=== PATIENT | female | born 1965 | race African-American/Black ===

== ENCOUNTER 2017-02-23 11:45 | Observation (INO) ==
[2017-02-23] MEDS ORDERED: NITROGLYCERIN 2% OINT 1 INCH/GM PACK TOP STA (12:25)
[2017-02-23] MEDS ORDERED: ONDANSETRON 4 MG/2 ML VIAL IV STA (12:25)
[2017-02-23] MEDS ORDERED: METOPROLOL TARTRATE 25 MG TABLET PO STA (12:25)
[2017-02-23] MEDS ORDERED: ASPIRIN 325 MG TABLET PO STA (12:25)
[2017-02-23] MEDS ORDERED: ALUM/MAG/SIMETH/LIDO VISC 1:1 30 ML BOTTLE PO STA (12:25)
--- NOTE | 2017-02-23 12:43 | Emergency Department Note ---
Raj Matthews Manpreet, am scribing for, and in the presence of, Dallin Hill MD 12:26. Sergio Matthews Charles R, MD, personally performed the services described in this documentation, ascribed by Lamine Anthony in my presence, and it is both accurate and complete . Arrival - Arrival Chief Complaint: Chest Pain Stated Complaint: sob,chest pains ED Nursing Triage Note: Midsternal chest pain onset 1130 - pt states that she was scheduled to have a echo done and states that while she was waiting that she started having chest pain Mode of Arrival: Ambulatory Limitations: No Limitations Source: Patient Time Seen by Provider: 02/23/17 12:16 - History of Present Illness HPI Narrative: Pt is a 51 y/o female who presents to the ED with CC of midsternal CP radiating into left shoulder and left neck onset today at 1130. Pt states she has been having this pain everyday but it suddenly got worse while she was sitting in her car. Pt states nothing makes the pain worse but it is accompanied by SOB. Pt had lab work done in [place], [place] on 02/20/17. Pt states she had prior heart catheterization done one year ago by Dr. Mcmanus but did not follow up. Pt also reports of having a previous AR in [place]. Pt denies any N/V/D, cough , fever or chills. No other pains/complaints reported to the ED. Onset (ago): hour(s) Consistency: constant Severity: moderate Quality: dull Date of Last Menstrual Period: hyster Allergies/Adverse Reactions: Allergies Allergy/AdvReac Type Severity Reaction Status Date / Time clindamycin Allergy HIVES Verified 02/23/17 11:55 metoclopramide [From Reglan] Allergy HIVES Verified 02/23/17 11:55 Penicillins Allergy HIVES Verified 02/23/17 11:55 Home Medications: Home Medications Medication Instructions Recorded Confirmed Type Furosemide [Furosemide] 20 mg PO 02/23/17 History Furosemide [Furosemide] 40 mg PO 02/23/17 History Metoprolol Succinate [Metoprolol 50 mg PO DAILY 02/23/17 History Succinate] NIFEdipine XL TAB [Procardia Xl] 30 mg PO DAILY 02/23/17 History Pantoprazole Sodium [Pantoprazole 40 mg PO DAILY 02/23/17 History Sodium] Potassium Chloride [Potassium 10 meq PO DAILY 02/23/17 History Chloride] Review of System - Review of System 12 point system: reviewed and no additional remarkable complaints except as stated - Review of System Constitutional: Absent: chills, diaphoresis, fever Respiratory: Present: respiratory distress. Absent: cough, wheezing Cardiovascular: Present: chest pain Gastrointestinal: Absent: abdominal pain, nausea, vomiting, diarrhea Musculoskeletal: Absent: back pain Neurological: Absent: headache, weakness, numbness, paresthesias Medical,Surgical,& Family Hx - Medical History Cardio: History of: Hypertension - Social History Smoking Status: Never smoker Frequency of Alcohol Use: None Type of Drug Use: None Exam Vital Signs: Vital Signs Temperature 97.1 F L 02/23/17 13:14 Pulse Rate 78 02/23/17 14:30 Respiratory Rate 20 02/23/17 14:30 Blood Pressure 127/76 02/23/17 14:30 O2 Sat by Pulse Oximetry 94 L 02/23/17 14:30 - General General appearance: alert, in no apparent distress - Head Head exam: Present: atraumatic, normocephalic, normal inspection - Eye Eye exam: Present: normal appearance, PERRL, EOMI - ENT ENT exam: Present: normal exam, normal oropharynx, mucous membranes moist, TM's normal bilaterally - Neck Neck exam: Present: normal inspection, full ROM, trachea midline. Absent: thyromegaly - Chest Chest inspection: Present: normal inspection, symmetric chest wall rise. Absent : tenderness - Respiratory Respiratory exam: Present: normal lung sounds bilaterally. Absent: accessory muscle use, respiratory distress - Cardiovascular Cardiovascular exam: Present: regular rate, normal rhythm, normal heart sounds. Absent: murmur, rubs, gallop - Abdominal Exam Abdominal exam: Present: soft, normal bowel sounds. Absent: distention, tenderness, guarding - Extremities Exam Extremities exam: Present: normal inspection, full ROM. Absent: tenderness - Back Exam Back exam: Present: normal inspection, full ROM. Absent: tenderness - Neurological Exam Neurological exam: Present: alert, oriented X3, CN II-XII intact, reflexes normal - Psychiatric Psychiatric exam: Present: normal affect, normal mood - Skin Skin exam: Present: warm, dry, intact, normal color. Absent: pallor Course - Consultations Consultation #1: Hospitalist will admit patient Time: 14:56 Results - Labs CBC & BMP: 02/23/17 12:54 02/23/17 12:54 Lab Results: I have reviewed the patients labs Labs: Laboratory Tests 02/23/17 02/23/17 12:54 12:54 WBC 9.6 RBC 3.90 Hgb 12.5 Hct 35.4 L MCV 90.8 MCH 32 MCHC 35.3 RDW 11.6 MPV 9.3 L [place] # (Auto) 1.0 H INR 1.0 PT Patient/Control Mix 10.5 D-Dimer, Quantitative <= 0.5 Laboratory Tests 02/23/17 02/23/17 12:54 12:54 Sodium 139 Potassium 3.3 L Chloride 104 Carbon Dioxide 29 Anion Gap 9.3 BUN 12 Creatinine 0.90 GFR Calculation 121 Glucose 100 Troponin I < 0.015 Total Protein 8.4 H Globulin 4.9 H Albumin/Globulin Ratio 0.7 L Lipase 422.0 H Laboratory Tests 02/23/17 02/23/17 12:54 12:54 Urine Color Yellow Urine Appearance Slightly hazy Urine pH 6.0 Ur Specific [place] 1.018 Urine Protein Negative Urine Glucose (UA) Negative Urine Ketones Negative Urine Blood Negative Urine Nitrate Negative Urine Bilirubin Negative Urine Urobilinogen 4.0 H Urine Leukocytes Negative Urine RBC 1 Urine WBC 3 Ur Squamous Epith Cells Occasional Urine Bacteria Occasional Urine Mucus Occasional Ur Culture Indicated? Not indicated Urine Opiates Screen Negative Ur Barbiturates Screen Negative Ur Phencyclidine Scrn Negative U Amphetamine/Methamph Negative U Benzodiazepines Scrn Negative U Cocaine Metab Screen Negative U Cannabinoids Screen Negative Laboratory Tests 02/23/17 02/23/17 12:54 12:54 B-Natriuretic Peptide 20 Amylase 77 - Diagnostic Findings Procedure: Chest x-ray: report reviewed by me ("Chest X-ray: No abnormality is seen.") Disposition Clinical Impression: Chest pain Case discussed with: patient, patient's family Disposition: Still a Patient Condition: Stable Time of Disposition: 14:56
--- NOTE | 2017-02-23 12:59 | XRay Report ---
2 view chest. Indication: Chest pain. The heart and mediastinal contours are unremarkable. The pulmonary vasculature is normal. There is no consolidation, pneumothorax, or pleural effusion. The osseous structures are unremarkable. Impression: No abnormality is seen. PROCEDURE INTERPRETED AT [facility] DEPARTMENT OF RADIOLOGY Final Report Signed by: Dr. Lianna Echols
[2017-02-23 13:08] LABS: Basophils % 0.4 % (0.0-0.8); Eosinophils # 0.2 10*3/uL (0.0-0.87); Eosinophils % 2.2 % (0.00-10.9); Hematocrit 35.4 VOL% (35.7-47.0); Hemoglobin 12.5 GM/DL (12.0-16.0); Immature Granulocytes % 0.3 %; Immature Granulocytes Absolute 0.03 #; Lymphocytes # 2.8 10*3/uL (1.4-4.0); Lymphocytes % 29.2 % (21.3-54.2); Mean Corpuscular HGB Conc 35.3 GM/DL (32-36); Mean Corpuscular Hemoglobin 32 PG (27-34); Mean Corpuscular Volume 90.8 FL (87-102); Mean Platelet Volume 9.3 FL (9.6-12.0); Monocytes % 9.9 % (1.7-12.7); Neutrophils # 5.6 10*3/uL (1.4-7.4); Platelet Count 387 T/CUMM (130-400); Red Cell Distribution Width 11.6 % (9.3-17.3); White Blood Count 9.6 T/CUMM (4-12)
[2017-02-23 13:18] LABS: PT Patient Result 10.5 SECS
[2017-02-23] MEDS ORDERED: ASPIRIN 325 MG TABLET ONE (13:19)
[2017-02-23] MEDS ORDERED: NITROGLYCERIN 2% OINT 1 INCH/GM PACK TOP ONE (13:19)
[2017-02-23] MEDS ORDERED: ONDANSETRON 4 MG/2 ML VIAL ONE (13:19)
[2017-02-23] MEDS ORDERED: METOPROLOL TARTRATE 25 MG TABLET ONE (13:19)
[2017-02-23] MEDS ORDERED: ALUM/MAG/SIMETH/LIDO VISC 1:1 30 ML BOTTLE PO ONE (13:19)
[2017-02-23 13:37] LABS: Alanine Aminotransferase 25 U/L (13-56); Albumin 3.5 G/DL (3.4-5.0); Alkaline Phosphatase 56 U/L (45-117); Aspartate Amino Transferase 16 U/L (0-37); Bilirubin,Total < 0.39 MG/DL (0.2-1.0); Blood Urea Nitrogen 12 MG/DL (7-18); Calcium 8.8 MG/DL (8.5-10.1); Glucose 100 MG/DL (74-106); Magnesium 2.1 MG/DL (1.8-2.4); Osmolality,Calculated 276.5 MOS/KG (273-304); Potassium 3.3 MMOL/L (3.5-5.1); Sodium 139 MMOL/L (136-145); Total Protein 8.4 G/DL (6.4-8.3)
[2017-02-23 13:40] LABS: Apearance,Urine Slightly Hazy (Clear); Bacteria,Urine Occasional /HPF (Few); Bilirubin,Urine Negative (Negative); Blood, Urine Negative (Negative); Glucose,Urine (UA) Negative (Negative); Ketones,Urine Negative (Negative); Mucus,Urine Occasional /LPF (Occasional); Nitrite,Urine Negative (Negative); Protein,Urine Negative; RBC,Urine 1 /HPF (0-4); Squamous Epithelial Cell,Urine Occasional /HPF (0-10); Urine Color Yellow (Yellow); Urine Specific Gravity 1.018 (1.001-1.035); WBC,Urine 3 /HPF (0-6)
[2017-02-23 13:45] LABS: Barbiturates Screen,Urine Negative (Negative); Benzodiazepines Screen,Urine Negative (Negative); Cannabinoid Screen,Urine Negative (Negative); Opiate Screen,Urine Negative (Negative); Phencyclidine Screen,Urine Negative (Negative)
--- NOTE | 2017-02-23 14:54 | Hospitalist History & Physical ---
Assessment and Plan (1) Chest pain, non-cardiac Status: Chronic Assessment and plan: Minimal risk factors for coronary artery disease. Markedly atypical history. Physical exam suggest possible pulmonary hypertension. Current Visit: Yes (2) Hypertension Status: Chronic Assessment and plan: On active treatment with Procardia and metoprolol. Current Visit: Yes History of Present Illness History of present illness: Ms. Casas is a 51 year old female non-smoker nondiabetic with a 5-10 year history of hypertension who presents with chronic chest pain. The patient in about 2007 while living in [place] was evaluated by manufacturing controller. She believes that she had myocardial perfusion imaging and subsequent cardiac catheterization without apparently positive findings. She believes in the last 12-18 months there is been a repeat catheterization performed locally although we have no record of this. Over this interval she has had long-standing intermittent chest discomfort. She relates it predominantly to job stress with no other palliative or provocative features. Generally the pain will last for several hours at a time gradually easing away with decreased activity and resting. She has had problems with swelling of her ankles recently with negative plain films of her ankle performed on 17 February and her primary care provider had ordered an echocardiogram for today. Last night while at work she had her typical discomfort which persisted until she got off work until 7 AM she waited around for her 1:00 echo appointment but with discomfort recurring she presented to the emergency department is admitted. Throughout this most recent episode she is noticed no associated symptoms. This is typically the case. She denies any swallowing dysfunction. History of peptic ulcer disease reflux type symptoms. Home Medications Medication Instructions Recorded Confirmed Type Furosemide [Furosemide] 20 mg PO 02/23/17 History Furosemide [Furosemide] 40 mg PO 02/23/17 History Metoprolol Succinate [Metoprolol 50 mg PO DAILY 02/23/17 History Succinate] NIFEdipine XL TAB [Procardia Xl] 30 mg PO DAILY 02/23/17 History Pantoprazole Sodium [Pantoprazole 40 mg PO DAILY 02/23/17 History Sodium] Potassium Chloride [Potassium 10 meq PO DAILY 02/23/17 History Chloride] Allergies Allergy/AdvReac Type Severity Reaction Status Date / Time clindamycin Allergy HIVES Verified 02/23/17 11:55 metoclopramide [From Reglan] Allergy HIVES Verified 02/23/17 11:55 Penicillins Allergy HIVES Verified 02/23/17 11:55 Medical,Surgical,& Family Hx - Medical History Cardio: History of: Hypertension (5-10 year he) Respiratory: History of: Respiratory Problems (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 Absent: claudication, palpitations - Respiratory Respiratory: Absent: cough, dyspnea, wheezing - Gastrointestinal Gastrointestinal: Absent: abdominal pain, change in bowel habits, dysphagia, hematemesis, hematochezia, melena, vomiting - Genitourinary Genitourinary: Absent: hematuria - Neurological Neurological: Present: dizziness (Lightheadedness rather than true vertigo). Absent: convulsions, syncope Exam - Constitutional Vitals: Period Temp Pulse Resp BP Sys/Mcgregor Pulse Ox Last 24 Hr 97.1 F-97.1 F 75-93 18-22 134-140/59-87 95-100 General appearance: over weight - Eye Eye exam: Absent: scleral icterus - Neck Neck exam: Absent: lymphadenopathy, thyromegaly - Respiratory Respiratory exam: Present: clear to auscultation bilaterally. Absent: rales, rhonchi, wheezes - Cardiovascular Cardiovascular exam: Present: JVD (JVP estimated 6 mmHg a wave dominant), regular rate and rhythm, other (Soft right ventricular impulse is palpable). Absent: carotid bruit - GI/Abdominal GI/Abdominal exam: Absent: distended, organomegaly, tenderness - Extremities Exam Extremities exam: Absent: edema - Neurological Exam Neurological exam: Present: alert, oriented X3 Results - Labs CBC & BMP: 02/23/17 12:54 02/23/17 12:54 Labs: Globulin 4.9 Urine drug screen negative Urinalysis negative Cardiac biomarkers negative Lipase 422, amylase 77 - Impressions Sinus rhythm minor right ventricular conduction delay - Diagnostic Findings Procedure: Chest x-ray: image reviewed by me (Negative)
--- NOTE | 2017-02-23 14:59 | EKG Report ---
Stationary ECG Study [facility] ER Test Date: 02/23/2017 11:56:44 AM Pat Name: ALEXI HULL Department: Room: Gender: F Inner Diameter Grinder Tool: Gerardo Plunkett : 1965 Requested by: Dallin Sutton Order Number: [id number] Reading MD: GLORIA RAHMAN Intervals [place] Rate: 86 P: 74 GA: 166 QRS: -17 QRSD: 96 T: 74 QT: 385 QTc: 428 Interpretive Statements SINUS RHYTHM POSSIBLE RIGHT VENTRICULAR CONDUCTION DELAY NONSPECIFIC T-WAVE ABNORMALITY Electronically Signed On 02-25-17 17:55:51 CDT by GLORIA RAHMAN [email or web address]
[2017-02-23] MEDS ORDERED: ONDANSETRON 4 MG/2 ML VIAL IV PRN (15:03)
[2017-02-23] MEDS ORDERED: BISACODYL 5 MG TABLET PO PRN (15:03)
[2017-02-23] MEDS ORDERED: ZALEPLON 5 MG CAPSULE PO PRN (15:03)
--- NOTE | 2017-02-23 15:27 | EKG Report ---
Stationary ECG Study [facility] ER Test Date: 02/23/2017 3:22:54 PM Pat Name: ALEXI HULL Department: Room: Gender: F Desktop Publishing Specialist: : 1965 Requested by: Dallin Sutton Order Number: [id number] Reading MD: GLORIA RAHMAN Intervals [place] Rate: 67 P: 38 ND: 161 QRS: -28 QRSD: 94 T: 17 QT: 431 QTc: 446 Interpretive Statements SINUS RHYTHM LOW QRS VOLTAGE IN PRECORDIAL LEADS POSSIBLE RIGHT VENTRICULAR CONDUCTION DELAY MODERATE VOLTAGE CRITERIA FOR LVH, CONSIDER NORMAL VARIANT POSSIBLE ANTERIOR MYOCARDIAL INFARCTION, PROBABLY OLD Electronically Signed On 02-25-17 18:03:27 CDT by GLORIA RAHMAN [email or web address]
--- NOTE | 2017-02-23 16:05 | ECHO Report ---
Anuradha Casas Exam Date: 02/23/2017 15:21 Referring Physician: Technologist: Lupe Adamson Age: 51 Ht (in): 71 Wt (lb): 288 Gender: F Exam Location: [facility] Echo Indications: chest pain, HTN, edema BP: 127 / 76 HR: 78 Rhythm: Sinus Technical Quality: IMPRESSIONS Normal chamber sizes 1+ concentric LVH Normal LV systolic function with ejection fraction estimated be 60% without segmental wall motion normality 1+ tricuspid regurgitation with RVSP 17 mmHg plus RAP MEASUREMENTS (Male / Female) Normal Values 2D ECHO LV Diastolic Diameter PLAX 4.8 cm 4.2 - 5.9 / 3.9 - 5.3 cm LV Systolic Diameter PLAX 2.0 cm LV Fractional Shortening PLAX 58.5 % IVS Diastolic Thickness 1.2 cm 0.6 - 1.0 / 0.6 - 0.9 cm LVPW Diastolic Thickness 1.0 cm 0.6 - 1.0 / 0.6 - 0.9 cm RV Internal Dim ED PLAX 3.0 cm Aortic Root Diameter 2.7 cm LA Systolic Diameter LX 3.2 cm 3.0 - 4.0 / 2.7 - 3.8 cm DOPPLER TR Peak Velocity 206.0 cm/s TR Peak Gradient 17.0 mmHg FINDINGS Left Ventricle Normal left ventricular cavity size. Mild concentric left ventricular hypertrophy.left ventricular ejection fraction is estimated Right Ventricle Normal right ventricular size. Right Atrium Normal right atrial size. Left Atrium Normal left atrial size. Mitral Valve Morphologically normal mitral valve. Aortic Valve The aortic valve is trileaflet and has normal motion. Tricuspid Valve Morphologically normal tricuspid valve. Trace tricuspid valve regurgitation. Tricuspid regurgitation velocities suggest a PAP of 17.0 mmHg + RAP. Pulmonic Valve Morphologically normal pulmonic valve. Pericardium No pericardial effusion. Aorta Normal size aortic root and proximal ascending aorta. Yair Parish (Electronically Signed) Final Date: 23 February 2017 16:03
[2017-02-23] MEDS ORDERED: ENOXAPARIN 40 MG/0.4 ML SYRINGE SUBCUT SCH (17:00)
[2017-02-23] MEDS: PANTOPRAZOLE 40 MG TABLET PO SCH (17:36)
[2017-02-23] MEDS: POTASSIUM CHLORIDE 20 MEQ TABLET PO SCH ×3 (17:37→22:02)
--- NOTE | 2017-02-23 17:58 | EKG Report ---
Stationary ECG Study [facility] Test Date: 02/23/2017 5:57:43 PM Pat Name: ALEXI HULL Department: Room: 422 Gender: F Obstetrician And Gynaecologist: ALEXUS : 1965 Requested by: Dallin Sutton Order Number: [id number] Reading MD: GLORIA RAHMAN Intervals [place] Rate: 58 P: 69 DC: 182 QRS: -3 QRSD: 96 T: 72 QT: 435 QTc: 432 Interpretive Statements SINUS RHYTHM NON-SPECIFIC IVCD Electronically Signed On 02-25-17 18:08:57 CDT by GLORIA RAHMAN [email or web address]
[2017-02-24] MEDS: POTASSIUM CHLORIDE 20 MEQ TABLET PO SCH (04:37)
[2017-02-24 06:12] LABS: Calcium 8.6 MG/DL (8.5-10.1); Osmolality,Calculated 278.4 MOS/KG (273-304); Potassium 4.4 MMOL/L (3.5-5.1)
[2017-02-24] MEDS ORDERED: METOPROLOL SUCCINATE XL 50 MG TABLET PO SCH (09:00)
[2017-02-24] MEDS: PANTOPRAZOLE 40 MG TABLET PO SCH (09:29)
[2017-02-24] MEDS ORDERED: ALUM/MAG/SIMETH/LIDO VISC 1:1 30 ML BOTTLE PO ONE (09:38)
[2017-02-24] MEDS ORDERED: ASPIRIN 325 MG TABLET PO SCH (10:00)
--- NOTE | 2017-02-24 10:49 | Discharge Summary ---
<Rema Albarran - Last Filed: 02/24/17 10:47> Hospital Course - Hospital Course Hospital Course: 51-year-old female with history of hypertension admitted by the hospitalist on with chronic chest pain. Her home medicines were restarted. Serial troponins and EKGs were both normal. Echocardiogram showed normal LV systolic function with an EF of 60% without segmental wall motion normality. She had 1+ tricuspid regurg. She was ruled out for VT. She is feeling much better this morning . She is reached maximal hospital benefit and she will be discharged home with a follow-up with her primary care physician. Care coordination, chart review, completed discharge paperwork took approximately 32 minutes.Patient is still complaining of some atypical chest pain although this has improved, she will need a stress test at some point so Cardiology has been consulted.D-dimer was negative. - Time spent with patient Time with patient DS: Greater than 30 minutes Diagnosis - Discharge Diagnosis (1) Chest pain, non-cardiac Status: Resolved (2) Hypertension Status: Chronic Specialty Discharge - Follow Up or Referrals Follow up with: Your, PCP [Other] - 2 Weeks Discharge Plan - Discharge Data Disposition: Disch To Home/Self Care Condition at Discharge: Stable Discharge Diet: heart healthy Activity: resume usual activities as tolerated Driving: no restrictions Contact your physician if you experience:: Shortness of breath, pain uncontrolled by pain medications - Discharge Medications New Aspirin EC Tab 81 mg PO DAILY tablet HYDROcodone/ACETAMIN 5-325 [[place] 5-325] 1 tablet PO Q4H PRN #20 tablet PRN Reason: Pain Mild (1-3) Esomeprazole Magnesium [Nexium] 40 mg PO DAILY #30 capsule Continue Furosemide 20 mg PO QPM Metoprolol Succinate 50 mg PO QAM NIFEdipine XL TAB [Procardia Xl] 30 mg PO QAM Potassium Chloride 10 meq PO QAM - Follow Up or Referral Follow Up: Your, PCP [Other] - 2 Weeks - Forms/Instructions Exam - Constitutional Vitals: Period Temp Pulse Resp BP Sys/Mcgregor Pulse Ox Last 24 Hr 96.4 F-98.2 F 56-93 18-22 88-141/44-87 94-100 Exam: 51-year-old female, no acute distress, alert and oriented Chest clear CV regular rate and rhythm Abdomen soft nontender Extremities no edema Discharge Results Procedures and tests throughout hospitalization: Pending Orders 02/24/17 10:58 Lipid Panel Routine Labs on day of discharge: Labs from last 24 hours 02/24/17 02/24/17 02/23/17 09:53 05:16 19:28 WBC RBC Hgb Hct MCV MCH MCHC RDW Plt Count MPV Neut % (Auto) Lymph % (Auto) [place] % (Auto) Eos % (Auto) Baso % (Auto) Neut # (Auto) Lymph # (Auto) [place] # (Auto) Eos # (Auto) Baso # (Auto) Immature Gran % Nucleated RBC % Immature Gran # Nucleated RBCs # Immature Plt Fraction INR PT Patient/Control Mix D-Dimer, Quantitative <= 0.5 Sodium 140 Potassium 4.4 Chloride 106 Carbon Dioxide 31 Anion Gap 7.4 BUN 13 Creatinine 0.90 GFR Calculation 122 BUN/Creatinine Ratio 14.00 Glucose 100 Calculated Osmolality 278.4 Calcium 8.6 Magnesium Total Bilirubin AST ALT Alkaline Phosphatase Troponin I < 0.015 B-Natriuretic Peptide Total Protein Albumin Globulin Albumin/Globulin Ratio Amylase Lipase Urine Color Urine Appearance Urine pH Ur Specific [place] Urine Protein Urine Glucose (UA) Urine Ketones Urine Blood Urine Nitrate Urine Bilirubin Urine Urobilinogen Urine Leukocytes Urine RBC Urine WBC Ur Squamous Epith Cells Urine Bacteria Urine Mucus Ur Culture Indicated? Urine Opiates Screen Ur Barbiturates Screen Ur Phencyclidine Scrn U Amphetamine/Methamph U Benzodiazepines Scrn U Cocaine Metab Screen U Cannabinoids Screen 02/23/17 02/23/17 02/23/17 15:27 12:54 12:54 WBC RBC Hgb Hct MCV MCH MCHC RDW Plt Count MPV Neut % (Auto) Lymph % (Auto) [place] % (Auto) Eos % (Auto) Baso % (Auto) Neut # (Auto) Lymph # (Auto) [place] # (Auto) Eos # (Auto) Baso # (Auto) Immature Gran % Nucleated RBC % Immature Gran # Nucleated RBCs # Immature Plt Fraction INR PT Patient/Control Mix D-Dimer, Quantitative Sodium Potassium Chloride Carbon Dioxide Anion Gap BUN Creatinine GFR Calculation BUN/Creatinine Ratio Glucose Calculated Osmolality Calcium Magnesium Total Bilirubin AST ALT Alkaline Phosphatase Troponin I < 0.015 < 0.015 B-Natriuretic Peptide Total Protein Albumin Globulin Albumin/Globulin Ratio Amylase 77 Lipase Urine Color Urine Appearance Urine pH Ur Specific [place] Urine Protein Urine Glucose (UA) Urine Ketones Urine Blood Urine Nitrate Urine Bilirubin Urine Urobilinogen Urine Leukocytes Urine RBC Urine WBC Ur Squamous Epith Cells Urine Bacteria Urine Mucus Ur Culture Indicated? Urine Opiates Screen Ur Barbiturates Screen Ur Phencyclidine Scrn U Amphetamine/Methamph U Benzodiazepines Scrn U Cocaine Metab Screen U Cannabinoids Screen 02/23/17 02/23/17 02/23/17 12:54 12:54 12:54 WBC 9.6 RBC 3.90 Hgb 12.5 Hct 35.4 L MCV 90.8 MCH 32 MCHC 35.3 RDW 11.6 Plt Count 387 MPV 9.3 L Neut % (Auto) 58.0 Lymph % (Auto) 29.2 [place] % (Auto) 9.9 Eos % (Auto) 2.2 Baso % (Auto) 0.4 Neut # (Auto) 5.6 Lymph # (Auto) 2.8 [place] # (Auto) 1.0 H Eos # (Auto) 0.2 Baso # (Auto) 0.0 Immature Gran % 0.3 Nucleated RBC % 0.0 Immature Gran # 0.03 Nucleated RBCs # 0.00 Immature Plt Fraction 0.0 INR PT Patient/Control Mix D-Dimer, Quantitative Sodium Potassium Chloride Carbon Dioxide Anion Gap BUN Creatinine GFR Calculation BUN/Creatinine Ratio Glucose Calculated Osmolality Calcium Magnesium Total Bilirubin AST ALT Alkaline Phosphatase Troponin I B-Natriuretic Peptide 20 Total Protein Albumin Globulin Albumin/Globulin Ratio Amylase Lipase Urine Color Urine Appearance Urine pH Ur Specific [place] Urine Protein Urine Glucose (UA) Urine Ketones Urine Blood Urine Nitrate Urine Bilirubin Urine Urobilinogen Urine Leukocytes Urine RBC Urine WBC Ur Squamous Epith Cells Urine Bacteria Urine Mucus Ur Culture Indicated? Urine Opiates Screen Negative Ur Barbiturates Screen Negative Ur Phencyclidine Scrn Negative U Amphetamine/Methamph Negative U Benzodiazepines Scrn Negative U Cocaine Metab Screen Negative U Cannabinoids Screen Negative 02/23/17 02/23/17 02/23/17 12:54 12:54 12:54 WBC RBC Hgb Hct MCV MCH MCHC RDW Plt Count MPV Neut % (Auto) Lymph % (Auto) [place] % (Auto) Eos % (Auto) Baso % (Auto) Neut # (Auto) Lymph # (Auto) [place] # (Auto) Eos # (Auto) Baso # (Auto) Immature Gran % Nucleated RBC % Immature Gran # Nucleated RBCs # Immature Plt Fraction INR 1.0 PT Patient/Control Mix 10.5 D-Dimer, Quantitative <= 0.5 Sodium 139 Potassium 3.3 L Chloride 104 Carbon Dioxide 29 Anion Gap 9.3 BUN 12 Creatinine 0.90 GFR Calculation 121 BUN/Creatinine Ratio 13.00 Glucose 100 Calculated Osmolality 276.5 Calcium 8.8 Magnesium 2.1 Total Bilirubin < 0.39 AST 16 ALT 25 Alkaline Phosphatase 56 Troponin I B-Natriuretic Peptide Total Protein 8.4 H Albumin 3.5 Globulin 4.9 H Albumin/Globulin Ratio 0.7 L Amylase Lipase 422.0 H Urine Color Yellow Urine Appearance Slightly hazy Urine pH 6.0 Ur Specific [place] 1.018 Urine Protein Negative Urine Glucose (UA) Negative Urine Ketones Negative Urine Blood Negative Urine Nitrate Negative Urine Bilirubin Negative Urine Urobilinogen 4.0 H Urine Leukocytes Negative Urine RBC 1 Urine WBC 3 Ur Squamous Epith Cells Occasional Urine Bacteria Occasional Urine Mucus Occasional Ur Culture Indicated? Not indicated Urine Opiates Screen Ur Barbiturates Screen Ur Phencyclidine Scrn U Amphetamine/Methamph U Benzodiazepines Scrn U Cocaine Metab Screen U Cannabinoids Screen DS: Provider Date of admission: 02/23/17 15:03 Primary care physician: Samaria Henry NP Attending physician on admission: Mick Jones MD Consults: 02/23/17 17:21 Consult to Dietitian [CONS] Routine Reason for Dietitian: Other Consult Comment: admission assessment 02/24/17 09:35 Consult to Physician [CONS] Routine Comment: Stress Test/Chest pain Consulting Provider: Leann Messer Consulting Provider Notified: Yes When should Consulting Provider be notified: Now Consult to Specialist Group: Cardiology When should Consulting Provider be notified: Now Person Notified: GEE Date Notified: 02/24/17 Time Notified: 09:41 Discharging clinician: KARLENE Hoff Expected date of discharge: 02/24/17 <Carol Edwards - Last Filed: 02/24/17 11:48> Hospital Course - Time spent with patient Time with patient DS: Greater than 30 minutes Diagnosis - Discharge Diagnosis (1) Chest pain, non-cardiac Status: Resolved (2) Hypertension Status: Chronic Discharge Plan - Forms/Instructions Additional Discharge Instructions: Cardiolgy to see either prior to dc or as outpatient for a stress test Exam - Constitutional General appearance: no acute distress - Head Head exam: Present: normal inspection - Eye Eye exam: Present: EOMI - Respiratory Respiratory exam: Present: clear to auscultation bilaterally - Cardiovascular Cardiovascular exam: Present: regular rate and rhythm - GI/Abdominal GI/Abdominal exam: Present: normal bowel sounds - Neurological Exam Neurological exam: Present: alert, oriented X3
--- NOTE | 2017-02-24 10:52 | Cardiology Consult Note ---
Assessment and Plan - Time spent with patient Time spent with patient: Greater than 30 minutes (Exam, chart review gathering outside information from [facility] documentation in order. Echo review) (1) Hypertension Status: Chronic Current Visit: Yes Qualifiers: Hypertension type: essential hypertension Qualified Code(s): I10 - Essential (primary) hypertension (2) Chest pain, non-cardiac Status: Resolved Assessment and plan: This is been long-standing discomfort the patient has been seen multiple times for this is resulted in stress test and left heart cath at [place] the pain has not changed since her left heart cath but it has not gone away. I think it is likely related to her blood pressure issues. I would recommend a blood pressure log adding an aspirin a day and treat her lipids if they warrant therapy I will check them. I have nothing further to add at this time I will sign off these call if needed Current Visit: Yes History of Present Illness - Data of Consult Patient: new to practice Consult date: 02/24/17 Requesting Physician: Mick Jones Primary care physician: Samaria Henry - Consult Narrative Reason for consult: chest pain History of present illness: Ms. Casas is a 51 year old female with history of chest pain ever since she [place] working at the [facility]. 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 The patient describes discomfort in her chest as a squeezing or tightness that comes on when she is at work is not related to exertion. She states that she has had this for many years. She has been evaluated for it before. She has had a stress test in the past. She had left heart catheterization with selective coronary angiography at [facility] on 09/07/[address] Dallin Mcmanus for this symptomatology. She had normal right dominant epicardial coronary arteries with normal resting hemodynamics normal aortic valvular gradient and no mitral regurgitation on ventriculography. The patient had a transthoracic echocardiogram read here by Dr. Parish that likewise is normal. She has no significant abnormality demonstrated on her EKG. She has blood pressure problems with hypertension and sedentary lifestyle as well as obesity is her identifiable risk factors. Her lipid status is not known. She does not smoke or drink alcohol or use recreational drugs. I have been asked to see for chest pain. The chest pain occurs at random and not related to exertion but appears to occur only at work. No nausea or associated diaphoresis it does occasionally go toward her left arm it is associated and described as a chest tightness or squeezing. I saw and examined the patient in room 422. She does not take an aspirin daily. CC: Carol Edwards MD - Home Medications and Allergies Home Medications: Home Medications Medication Instructions Recorded Confirmed Type Furosemide 20 mg PO QPM 02/23/17 02/23/17 History Metoprolol Succinate 50 mg PO QAM 02/23/17 02/23/17 History NIFEdipine XL TAB [Procardia Xl] 30 mg PO QAM 02/23/17 02/23/17 History Potassium Chloride 10 meq PO QAM 02/23/17 02/23/17 History Allergies/Adverse Reactions: Allergies Allergy/AdvReac Type Severity Reaction Status Date / Time clindamycin Allergy HIVES Verified 02/23/17 11:55 metoclopramide [From Reglan] Allergy HIVES Verified 02/23/17 11:55 Penicillins Allergy HIVES Verified 02/23/17 11:55 - Constitutional Constitutional: Absent: anorexia, fever(s) - EENT Nose, mouth and throat: Absent: neck pain, sore throat - Cardiovascular Cardiovascular: Present: chest pain at rest, dyspnea on exertion. Absent: chest pain with activity, diaphoresis, edema, radiating jaw, neck or arm pain, lightheadedness, orthopnea - Respiratory Respiratory: Present: dyspnea, dyspnea on exertion, snoring. Absent: cough, wheezing - Gastrointestinal Gastrointestinal: Absent: dyspepsia, dysphagia, nausea, vomiting - Psychiatric Psychiatric: Present: anxiety. Absent: depression - Endocrine Endocrine: Present: heat intolerance. 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) - Surgical History Reproductive Surgeries: Surgical HX of;: Hysterectomy - Family History Family History: Reports;: Family Cancer (Aunt- Breast cancer), Family Heart Disease (Mother and father), Family Hypertension (mother and father), Family Stroke (Uncle) - Social History Smoking Status: Never smoker Frequency of Alcohol Use: None Type of Drug Use: None Functional capacity: independent ambulation Physical Examination Vital Signs Temp Pulse Resp BP Pulse Ox 97.1 F L 83 20 134/59 97 02/23/17 11:56 02/23/17 11:56 02/23/17 11:56 02/23/17 11:56 02/23/17 11:56 General: Present: Other (Obese no distress) HEENT: Absent: Pallor Neck: Present: Supple Neck Cardiac: Present: Reg Rate and Rhythm, S1/S2. Absent: S4 Lungs: Present: Normal Exam Neuro: Present: Cranial Nerve 2-12 Intact Abdomen: Present: Soft, Active Bowel Sounds Skin: Present: Clear Result/EKG - Labs CBC & BMP: 02/23/17 12:54 02/24/17 05:16 Labs: Laboratory Results - last 24 hr 02/23/17 02/23/17 02/23/17 12:54 12:54 12:54 WBC RBC Hgb Hct MCV MCH MCHC RDW Plt Count MPV Neut % (Auto) Lymph % (Auto) [place] % (Auto) Eos % (Auto) Baso % (Auto) Neut # (Auto) Lymph # (Auto) [place] # (Auto) Eos # (Auto) Baso # (Auto) Immature Gran % Nucleated RBC % Immature Gran # Nucleated RBCs # Immature Plt Fraction INR 1.0 PT Patient/Control Mix 10.5 D-Dimer, Quantitative <= 0.5 Sodium 139 Potassium 3.3 L Chloride 104 Carbon Dioxide 29 Anion Gap 9.3 BUN 12 Creatinine 0.90 GFR Calculation 121 BUN/Creatinine Ratio 13.00 Glucose 100 Calculated Osmolality 276.5 Calcium 8.8 Magnesium 2.1 Total Bilirubin < 0.39 AST 16 ALT 25 Alkaline Phosphatase 56 Troponin I B-Natriuretic Peptide Total Protein 8.4 H Albumin 3.5 Globulin 4.9 H Albumin/Globulin Ratio 0.7 L Amylase Lipase 422.0 H Urine Color Yellow Urine Appearance Slightly hazy Urine pH 6.0 Ur Specific [place] 1.018 Urine Protein Negative Urine Glucose (UA) Negative Urine Ketones Negative Urine Blood Negative Urine Nitrate Negative Urine Bilirubin Negative Urine Urobilinogen 4.0 H Urine Leukocytes Negative Urine RBC 1 Urine WBC 3 Ur Squamous Epith Cells Occasional Urine Bacteria Occasional Urine Mucus Occasional Ur Culture Indicated? Not indicated Urine Opiates Screen Ur Barbiturates Screen Ur Phencyclidine Scrn U Amphetamine/Methamph U Benzodiazepines Scrn U Cocaine Metab Screen U Cannabinoids Screen 02/23/17 02/23/17 02/23/17 12:54 12:54 12:54 WBC 9.6 RBC 3.90 Hgb 12.5 Hct 35.4 L MCV 90.8 MCH 32 MCHC 35.3 RDW 11.6 Plt Count 387 MPV 9.3 L Neut % (Auto) 58.0 Lymph % (Auto) 29.2 [place] % (Auto) 9.9 Eos % (Auto) 2.2 Baso % (Auto) 0.4 Neut # (Auto) 5.6 Lymph # (Auto) 2.8 [place] # (Auto) 1.0 H Eos # (Auto) 0.2 Baso # (Auto) 0.0 Immature Gran % 0.3 Nucleated RBC % 0.0 Immature Gran # 0.03 Nucleated RBCs # 0.00 Immature Plt Fraction 0.0 INR PT Patient/Control Mix D-Dimer, Quantitative Sodium Potassium Chloride Carbon Dioxide Anion Gap BUN Creatinine GFR Calculation BUN/Creatinine Ratio Glucose Calculated Osmolality Calcium Magnesium Total Bilirubin AST ALT Alkaline Phosphatase Troponin I B-Natriuretic Peptide 20 Total Protein Albumin Globulin Albumin/Globulin Ratio Amylase Lipase Urine Color Urine Appearance Urine pH Ur Specific [place] Urine Protein Urine Glucose (UA) Urine Ketones Urine Blood Urine Nitrate Urine Bilirubin Urine Urobilinogen Urine Leukocytes Urine RBC Urine WBC Ur Squamous Epith Cells Urine Bacteria Urine Mucus Ur Culture Indicated? Urine Opiates Screen Negative Ur Barbiturates Screen Negative Ur Phencyclidine Scrn Negative U Amphetamine/Methamph Negative U Benzodiazepines Scrn Negative U Cocaine Metab Screen Negative U Cannabinoids Screen Negative 02/23/17 02/23/17 02/23/17 12:54 12:54 15:27 WBC RBC Hgb Hct MCV MCH MCHC RDW Plt Count MPV Neut % (Auto) Lymph % (Auto) [place] % (Auto) Eos % (Auto) Baso % (Auto) Neut # (Auto) Lymph # (Auto) [place] # (Auto) Eos # (Auto) Baso # (Auto) Immature Gran % Nucleated RBC % Immature Gran # Nucleated RBCs # Immature Plt Fraction INR PT Patient/Control Mix D-Dimer, Quantitative Sodium Potassium Chloride Carbon Dioxide Anion Gap BUN Creatinine GFR Calculation BUN/Creatinine Ratio Glucose Calculated Osmolality Calcium Magnesium Total Bilirubin AST ALT Alkaline Phosphatase Troponin I < 0.015 < 0.015 B-Natriuretic Peptide Total Protein Albumin Globulin Albumin/Globulin Ratio Amylase 77 Lipase Urine Color Urine Appearance Urine pH Ur Specific [place] Urine Protein Urine Glucose (UA) Urine Ketones Urine Blood Urine Nitrate Urine Bilirubin Urine Urobilinogen Urine Leukocytes Urine RBC Urine WBC Ur Squamous Epith Cells Urine Bacteria Urine Mucus Ur Culture Indicated? Urine Opiates Screen Ur Barbiturates Screen Ur Phencyclidine Scrn U Amphetamine/Methamph U Benzodiazepines Scrn U Cocaine Metab Screen U Cannabinoids Screen 02/23/17 02/24/17 19:28 05:16 WBC RBC Hgb Hct MCV MCH MCHC RDW Plt Count MPV Neut % (Auto) Lymph % (Auto) [place] % (Auto) Eos % (Auto) Baso % (Auto) Neut # (Auto) Lymph # (Auto) [place] # (Auto) Eos # (Auto) Baso # (Auto) Immature Gran % Nucleated RBC % Immature Gran # Nucleated RBCs # Immature Plt Fraction INR PT Patient/Control Mix D-Dimer, Quantitative Sodium 140 Potassium 4.4 Chloride 106 Carbon Dioxide 31 Anion Gap 7.4 BUN 13 Creatinine 0.90 GFR Calculation 122 BUN/Creatinine Ratio 14.00 Glucose 100 Calculated Osmolality 278.4 Calcium 8.6 Magnesium Total Bilirubin AST ALT Alkaline Phosphatase Troponin I < 0.015 B-Natriuretic Peptide Total Protein Albumin Globulin Albumin/Globulin Ratio Amylase Lipase Urine Color Urine Appearance Urine pH Ur Specific [place] Urine Protein Urine Glucose (UA) Urine Ketones Urine Blood Urine Nitrate Urine Bilirubin Urine Urobilinogen Urine Leukocytes Urine RBC Urine WBC Ur Squamous Epith Cells Urine Bacteria Urine Mucus Ur Culture Indicated? Urine Opiates Screen Ur Barbiturates Screen Ur Phencyclidine Scrn U Amphetamine/Methamph U Benzodiazepines Scrn U Cocaine Metab Screen U Cannabinoids Screen - EKG EKG results: interpreted by me, WNL Specialty Discharge - Follow Up or Referrals Follow up with: Your, PCP [Other] - 2 Weeks
[2017-02-24 12:04] LABS: Risk Ratio 3.14; VLDL CHOLESTEROL 25.8 MG/DL
[2017-02-24 13:25] VITALS: BP 116/56
[2017-02-25] MEDS ORDERED: ASPIRIN EC 81 MG TABLET PO SCH (09:00)
== END 2017-02-24 15:15 | disposition home or self-care (01) ==
LOC: N.EDINP 11:45 → N.ED 11:45 → SUATTDRO 15:03 → N.4E 16:50
PROVIDERS: ADMIT Internal Medicine Cardiovascular Disease; ATTEND Internal Medicine

== ENCOUNTER 2017-06-06 09:23 | Inpatient (IN) ==
[2017-06-06] MEDS ORDERED: ACETAMINOPHEN 325 MG TABLET PO PRN (09:36)
[2017-06-06] MEDS ORDERED: guaiFENesin/DM ER 600-30 MG TABLET PO PRN (09:36)
[2017-06-06] MEDS ORDERED: DOCUSATE SODIUM 100 MG CAPSULE PO PRN (09:36)
[2017-06-06] MEDS ORDERED: ZALEPLON 5 MG CAPSULE PO PRN (09:36)
[2017-06-06] MEDS ORDERED: diphenhydrAMINE CAP 25 MG CAPSULE PO PRN (09:36)
[2017-06-06] MEDS ORDERED: MAGNESIUM SULF RIDER 4 GM in PREMIX 1 EACH IV PRN (09:36)
[2017-06-06] MEDS ORDERED: LACTULOSE 20 GM/30 ML UDCUP PO PRN (09:36)
[2017-06-06] MEDS ORDERED: ONDANSETRON 4 MG/2 ML VIAL IV PRN (09:36)
[2017-06-06] MEDS ORDERED: MAGNESIUM SULF RIDER 2 GM in PREMIX 1 EACH IV PRN (09:36)
[2017-06-06] MEDS: PANTOPRAZOLE 40 MG TABLET PO SCH (13:00)
[2017-06-06 13:29] LABS: Troponin I Only < 0.015 NG/ML (0.00-0.045)
[2017-06-06 14:23] LABS: Apearance,Urine CLEAR (Clear); Bilirubin,Urine Negative (Negative); Blood, Urine Negative (Negative); Glucose,Urine (UA) Negative (Negative); Ketones,Urine Negative (Negative); Nitrite,Urine Negative (Negative); Protein,Urine Negative; RBC,Urine <1 /HPF (0-4); Squamous Epithelial Cell,Urine Occasional /HPF (0-10); Urine Color Straw (Yellow); Urine Specific Gravity 1.006 (1.001-1.035); Urine Urobilinogen < 2.0 EU/DL (0.2-1.0); WBC,Urine 1 /HPF (0-6)
[2017-06-06 16:14] LABS: Troponin I Only < 0.015 NG/ML (0.00-0.045)
[2017-06-06] MEDS ORDERED: MAGNESIUM HYDROXIDE SUSP 30 ML UDCUP PO PRN (17:41)
[2017-06-06] MEDS: ENOXAPARIN 40 MG/0.4 ML SYRINGE SUBCUT SCH (21:40)
[2017-06-06] MEDS: FUROSEMIDE 40 MG TABLET PO SCH (21:40)
[2017-06-07 05:58] LABS: Basophils # 0.1 10*3/uL (0.0-0.2); Basophils % 0.7 % (0.0-0.8); Eosinophils # 0.2 10*3/uL (0.0-0.87); Eosinophils % 1.6 % (0.00-10.9); Hematocrit 38.6 VOL% (35.7-47.0); Hemoglobin 13.4 GM/DL (12.0-16.0); Immature Granulocytes % 0.3 %; Immature Granulocytes Absolute 0.03 #; Lymphocytes # 3.9 10*3/uL (1.4-4.0); Lymphocytes % 42.2 % (21.3-54.2); Mean Corpuscular HGB Conc 34.7 GM/DL (32-36); Mean Corpuscular Hemoglobin 32 PG (27-34); Mean Platelet Volume 9.5 FL (9.6-12.0); Monocytes # 0.7 10*3/uL (0.11-0.8); Monocytes % 7.7 % (1.7-12.7); Neutrophils # 4.4 10*3/uL (1.4-7.4); Neutrophils % 47.5 % (38.7-73.9); Platelet Count 427 T/CUMM (130-400); Red Blood Count 4.24 MC/CUMM (3.8-5.5); Red Cell Distribution Width 11.8 % (9.3-17.3); White Blood Count 9.2 T/CUMM (4-12)
[2017-06-07 06:28] LABS: Calcium 9.1 MG/DL (8.5-10.1); Magnesium 2.1 MG/DL (1.8-2.4); Osmolality,Calculated 272.8 MOS/KG (273-304); Potassium 3.6 MMOL/L (3.5-5.1); Risk Ratio 3.44; VLDL CHOLESTEROL 24.4 MG/DL
[2017-06-07] MEDS ORDERED: REGADENOSON 0.4 MG/5 ML SYRINGE IV ONE (09:46)
[2017-06-07] MEDS: PANTOPRAZOLE 40 MG TABLET PO SCH (13:23)
[2017-06-07] MEDS: FUROSEMIDE 40 MG TABLET PO SCH ×2 (13:23→22:03)
[2017-06-07] MEDS: PROPRANOLOL LA 60 MG CAPSULE PO SCH (13:23)
[2017-06-07] MEDS: ASPIRIN 325 MG TABLET PO SCH (13:23)
[2017-06-07] MEDS: POTASSIUM CHLORIDE 10 MEQ TABLET PO SCH (13:23)
[2017-06-07] MEDS: ENOXAPARIN 40 MG/0.4 ML SYRINGE SUBCUT SCH (22:03)
[2017-06-08 03:35] LABS: Basophils # 0.1 10*3/uL (0.0-0.2); Basophils % 0.7 % (0.0-0.8); Eosinophils # 0.2 10*3/uL (0.0-0.87); Eosinophils % 1.9 % (0.00-10.9); Hematocrit 37.9 VOL% (35.7-47.0); Hemoglobin 12.7 GM/DL (12.0-16.0); Immature Granulocytes % 0.3 %; Immature Granulocytes Absolute 0.03 #; Lymphocytes # 3.7 10*3/uL (1.4-4.0); Lymphocytes % 40.8 % (21.3-54.2); Mean Corpuscular HGB Conc 33.5 GM/DL (32-36); Mean Corpuscular Hemoglobin 31 PG (27-34); Mean Corpuscular Volume 93.3 FL (87-102); Mean Platelet Volume 9.4 FL (9.6-12.0); Monocytes # 0.8 10*3/uL (0.11-0.8); Monocytes % 8.5 % (1.7-12.7); Neutrophils # 4.3 10*3/uL (1.4-7.4); Neutrophils % 47.8 % (38.7-73.9); Platelet Count 408 T/CUMM (130-400); Red Blood Count 4.06 MC/CUMM (3.8-5.5); Red Cell Distribution Width 11.8 % (9.3-17.3)
[2017-06-08 04:19] LABS: Calcium 8.6 MG/DL (8.5-10.1); Magnesium 2.1 MG/DL (1.8-2.4); Osmolality,Calculated 275.7 MOS/KG (273-304); Potassium 3.6 MMOL/L (3.5-5.1)
[2017-06-08] MEDS: ASPIRIN 325 MG TABLET PO SCH (10:22)
[2017-06-08] MEDS: POTASSIUM CHLORIDE 10 MEQ TABLET PO SCH (10:22)
[2017-06-08] MEDS: PROPRANOLOL LA 60 MG CAPSULE PO SCH (10:22)
[2017-06-08] MEDS: FUROSEMIDE 40 MG TABLET PO SCH (10:22)
[2017-06-08] MEDS: PANTOPRAZOLE 40 MG TABLET PO SCH (10:22)
[2017-06-08 12:29] VITALS: BP 149/59
[2017-06-13] MEDS ORDERED: ERGOCALCIFEROL 50,000 UNIT CAPSULE PO SCH (09:00)
== END 2017-06-08 15:22 | disposition home or self-care (01) | DRG 313 ==
LOC: N.TELEN 12:12
PROVIDERS: ADMIT Internal Medicine Cardiovascular Disease; ATTEND Internal Medicine Cardiovascular Disease

== ENCOUNTER 2018-09-03 18:32 | Observation (INO) ==
[2018-09-03 19:04] LABS: Basophils # 0.1 10*3/uL (0.0-0.2); Basophils % 0.5 % (0.0-0.8); Eosinophils # 0.2 10*3/uL (0.0-0.87); Eosinophils % 1.7 % (0.00-10.9); Hematocrit 39.3 VOL% (35.7-47.0); Hemoglobin 13.1 GM/DL (12.0-16.0); Immature Granulocytes % 0.3 %; Immature Granulocytes Absolute 0.03 #; Lymphocytes # 4.1 10*3/uL (1.4-4.0); Lymphocytes % 40.7 % (21.3-54.2); Mean Corpuscular HGB Conc 33.3 GM/DL (32-36); Mean Corpuscular Hemoglobin 31 PG (27-34); Mean Corpuscular Volume 92.3 FL (87-102); Mean Platelet Volume 9.6 FL (9.6-12.0); Monocytes # 0.8 10*3/uL (0.11-0.8); Monocytes % 8.1 % (1.7-12.7); Neutrophils # 4.9 10*3/uL (1.4-7.4); Neutrophils % 48.7 % (38.7-73.9); Platelet Count 428 T/CUMM (130-400); Red Blood Count 4.26 MC/CUMM (3.8-5.5); Red Cell Distribution Width 11.6 % (9.3-17.3)
[2018-09-03 19:33] LABS: Albumin 3.5 G/DL (3.4-5.0); Bilirubin,Total 0.6 MG/DL (0.2-1.0); Calcium 8.7 MG/DL (8.5-10.1); Osmolality,Calculated 278.4 MOS/KG (273-304); Potassium 3.9 MMOL/L (3.5-5.1); Total Protein 8.8 G/DL (6.4-8.3)
[2018-09-03] MEDS ORDERED: NITROGLYCERIN 2% OINT 1 INCH/GM PACK TOP STA (20:34)
[2018-09-03] MEDS ORDERED: ASPIRIN 325 MG TABLET PO STA (20:34)
[2018-09-03] MEDS ORDERED: ONDANSETRON 4 MG/2 ML VIAL IV STA (20:34)
[2018-09-03] MEDS ORDERED: MORPHINE 4 MG/1 ML VIAL IV STA (20:34)
[2018-09-03 20:57] LABS: PT Patient Result 10.4 SECS
[2018-09-03] MEDS ORDERED: ACETAMINOPHEN 325 MG TABLET PO PRN (21:08)
[2018-09-03] MEDS ORDERED: diphenhydrAMINE CAP 25 MG CAPSULE PO PRN (21:08)
[2018-09-03] MEDS ORDERED: hydrALAZINE 20 MG/1 ML VIAL IV PRN (21:08)
[2018-09-03] MEDS ORDERED: NICOTINE 21 MG/24 HR PATCH TRANSDERM PRN (21:08)
[2018-09-03] MEDS ORDERED: BISACODYL 5 MG TABLET PO PRN (21:08)
[2018-09-03] MEDS ORDERED: MORPHINE 4 MG/1 ML VIAL IV PRN (21:08)
[2018-09-03] MEDS ORDERED: ZALEPLON 5 MG CAPSULE PO PRN (21:08)
[2018-09-03] MEDS ORDERED: guaiFENesin/DM ER 600-30 MG TABLET PO PRN (21:08)
[2018-09-03] MEDS ORDERED: ONDANSETRON 4 MG/2 ML VIAL IV PRN (21:08)
[2018-09-03 21:34] LABS: Risk Ratio 2.59; Thyroid Stimulating Hormone 0.098 uIU/ml (0.358-3.74); VLDL CHOLESTEROL 25.2 MG/DL
[2018-09-04 02:58] LABS: Calcium 8.1 MG/DL (8.5-10.1); Osmolality,Calculated 275.7 MOS/KG (273-304); Potassium 3.7 MMOL/L (3.5-5.1)
[2018-09-04] MEDS ORDERED: FUROSEMIDE 40 MG/4 ML VIAL IV SCH (08:00)
[2018-09-04] MEDS ORDERED: LORazepam 2 MG/1 ML VIAL IV ONE (08:31)
[2018-09-04] MEDS ORDERED: METOPROLOL TARTRATE 25 MG TABLET PO SCH ×2 (09:00→21:00)
[2018-09-04] MEDS ORDERED: POTASSIUM CHLORIDE 10 MEQ TABLET PO SCH (09:00)
[2018-09-04] MEDS ORDERED: PANTOPRAZOLE 40 MG TABLET PO SCH (09:00)
[2018-09-04] MEDS ORDERED: PROPRANOLOL HCL 60 MG PO SCH (09:00)
[2018-09-04] MEDS ORDERED: ENOXAPARIN 40 MG/0.4 ML SYRINGE SUBCUT SCH (09:00)
[2018-09-04] MEDS ORDERED: ASPIRIN 325 MG TABLET PO SCH (09:00)
[2018-09-04 09:03] LABS: Free T4 (Free Thyroxine) 1.09 NG/DL (0.76-1.46)
[2018-09-04] MEDS ORDERED: CYCLOBENZAPRINE 10 MG TABLET PO SCH (10:30)
[2018-09-04] MEDS ORDERED: KETOROLAC 30 MG/1 ML VIAL IV ONE (11:02)
[2018-09-04 13:19] LABS: Apearance,Urine CLEAR (Clear); Bilirubin,Urine Negative (Negative); Blood, Urine Negative (Negative); Glucose,Urine (UA) Negative (Negative); Ketones,Urine Negative (Negative); Mucus,Urine Occasional /LPF (Occasional); Nitrite,Urine Negative (Negative); Protein,Urine Negative; RBC,Urine <1 /HPF (0-4); Squamous Epithelial Cell,Urine Occasional /HPF (0-10); Urine Color Yellow (Yellow); Urine Specific Gravity 1.013 (1.001-1.035); WBC,Urine 2 /HPF (0-6)
[2018-09-04 16:12] VITALS: BP 115/62
[2018-09-04] MEDS ORDERED: IBUPROFEN 400 MG TABLET PO PRN (17:00)
[2018-09-04] MEDS ORDERED: ROSUVASTATIN 20 MG TABLET PO SCH (21:00)
[2018-09-05] MEDS ORDERED: FUROSEMIDE 40 MG TABLET PO SCH (09:00)
[2018-09-10] MEDS ORDERED: ERGOCALCIFEROL 50,000 UNIT CAPSULE PO SCH (09:00)
== END 2018-09-04 19:09 | disposition home or self-care (01) ==
LOC: N.EDINP 18:32 → N.ED 18:32 → N.TELES 21:59
PROVIDERS: ADMIT Internal Medicine; ATTEND Internal Medicine

== ENCOUNTER 2019-03-02 11:29 | Observation (INO) ==
[2019-03-02] MEDS ORDERED: ASPIRIN 325 MG TABLET PO STA (12:31)
[2019-03-02 12:39] LABS: Basophils % 0.6 % (0.0-0.8); Eosinophils # 0.1 10*3/uL (0.0-0.87); Eosinophils % 1.7 % (0.00-10.9); Hematocrit 39.8 VOL% (35.7-47.0); Hemoglobin 13.6 GM/DL (12.0-16.0); Immature Granulocytes % 0.3 %; Immature Granulocytes Absolute 0.02 #; Lymphocytes # 2.6 10*3/uL (1.4-4.0); Lymphocytes % 39.3 % (21.3-54.2); Mean Corpuscular HGB Conc 34.2 GM/DL (32-36); Mean Corpuscular Volume 88.8 FL (87-102); Mean Platelet Volume 9.6 FL (9.6-12.0); Monocytes % 8.8 % (1.7-12.7); Neutrophils % 49.3 % (38.7-73.9); Platelet Count 425 T/CUMM (130-400); Red Blood Count 4.48 MC/CUMM (3.8-5.5); Red Cell Distribution Width 11.5 % (9.3-17.3); White Blood Count 6.6 T/CUMM (4-12)
[2019-03-02 12:47] LABS: Osmolality,Calculated 280.3 MOS/KG (273-304)
[2019-03-02] MEDS: NITROGLYCERIN SL 0.4 MG TABLET SL PRN ×4 (12:53→20:20)
[2019-03-02] MEDS ORDERED: MORPHINE 4 MG/1 ML VIAL ONE (13:06)
[2019-03-02] MEDS ORDERED: ONDANSETRON 4 MG/2 ML VIAL ONE (13:06)
[2019-03-02] MEDS ORDERED: ONDANSETRON 4 MG/2 ML VIAL IV STA (13:07)
[2019-03-02] MEDS ORDERED: MORPHINE 4 MG/1 ML VIAL IV STA ×2 (13:07→14:03)
[2019-03-02] MEDS ORDERED: ACETAMINOPHEN 325 MG TABLET PO PRN (15:25)
[2019-03-02] MEDS ORDERED: DOCUSATE SODIUM 100 MG CAPSULE PO PRN (15:25)
[2019-03-02 17:20] LABS: Free T4 (Free Thyroxine) 1.56 NG/DL (0.76-1.46)
[2019-03-02 19:34] LABS: Apearance,Urine CLEAR (Clear); Bilirubin,Urine Negative (Negative); Blood, Urine Negative (Negative); Glucose,Urine (UA) Negative (Negative); Ketones,Urine 20 mg/dL (Negative); Mucus,Urine Occasional /LPF (Occasional); Nitrite,Urine Negative (Negative); Protein,Urine Negative; RBC,Urine 2 /HPF (0-4); Squamous Epithelial Cell,Urine Occasional /HPF (0-10); Urine Color Yellow (Yellow); Urine Specific Gravity 1.056 (1.001-1.035); WBC,Urine 3 /HPF (0-6)
[2019-03-02] MEDS: ONDANSETRON 4 MG/2 ML VIAL IV PRN (20:20)
[2019-03-02] MEDS: ROSUVASTATIN 20 MG TABLET PO SCH (20:23)
[2019-03-02] MEDS: METOPROLOL TARTRATE 25 MG TABLET PO SCH (20:23)
[2019-03-02] MEDS: ENOXAPARIN 40 MG/0.4 ML SYRINGE SUBCUT SCH (20:23)
[2019-03-02 22:51] LABS: Barbiturates Screen,Urine Negative (Negative); Benzodiazepines Screen,Urine Negative (Negative); Cannabinoid Screen,Urine Negative (Negative); Opiate Screen,Urine Positive (Negative); Phencyclidine Screen,Urine Negative (Negative)
[2019-03-03 04:28] LABS: Basophils % 0.5 % (0.0-0.8); Eosinophils # 0.2 10*3/uL (0.0-0.87); Eosinophils % 2.6 % (0.00-10.9); Hematocrit 35.2 VOL% (35.7-47.0); Hemoglobin 11.7 GM/DL (12.0-16.0); Immature Granulocytes % 0.1 %; Immature Granulocytes Absolute 0.01 #; Lymphocytes # 3.4 10*3/uL (1.4-4.0); Lymphocytes % 41.1 % (21.3-54.2); Mean Corpuscular HGB Conc 33.2 GM/DL (32-36); Mean Corpuscular Volume 90.3 FL (87-102); Mean Platelet Volume 9.7 FL (9.6-12.0); Monocytes % 8.9 % (1.7-12.7); Neutrophils % 46.8 % (38.7-73.9); Platelet Count 376 T/CUMM (130-400); Red Cell Distribution Width 11.8 % (9.3-17.3); White Blood Count 8.2 T/CUMM (4-12)
[2019-03-03 05:11] LABS: Calcium 8.9 MG/DL (8.5-10.1); Osmolality,Calculated 281.3 MOS/KG (273-304); Risk Ratio 3.09; VLDL CHOLESTEROL 16.4 MG/DL
[2019-03-03] MEDS: ONDANSETRON 4 MG/2 ML VIAL IV PRN (08:33)
[2019-03-03] MEDS: FUROSEMIDE 40 MG TABLET PO SCH (08:36)
[2019-03-03] MEDS: POTASSIUM CHLORIDE 10 MEQ TABLET PO SCH (08:36)
[2019-03-03] MEDS: METOPROLOL TARTRATE 25 MG TABLET PO SCH ×2 (08:36→20:25)
[2019-03-03] MEDS: PANTOPRAZOLE 40 MG TABLET PO SCH (08:36)
[2019-03-03] MEDS: ASPIRIN 325 MG TABLET PO SCH (08:36)
[2019-03-03] MEDS: methIMAzole 5 MG TABLET PO SCH (14:09)
[2019-03-03] MEDS: ENOXAPARIN 40 MG/0.4 ML SYRINGE SUBCUT SCH (20:24)
[2019-03-03] MEDS: ROSUVASTATIN 20 MG TABLET PO SCH (20:25)
[2019-03-04 05:00] LABS: Basophils % 0.5 % (0.0-0.8); Eosinophils # 0.1 10*3/uL (0.0-0.87); Eosinophils % 1.5 % (0.00-10.9); Hematocrit 36.2 VOL% (35.7-47.0); Hemoglobin 12.3 GM/DL (12.0-16.0); Immature Granulocytes % 0.2 %; Immature Granulocytes Absolute 0.02 #; Lymphocytes # 2.8 10*3/uL (1.4-4.0); Lymphocytes % 33.3 % (21.3-54.2); Mean Corpuscular Volume 89.4 FL (87-102); Monocytes % 10.9 % (1.7-12.7); Neutrophils % 53.6 % (38.7-73.9); Platelet Count 379 T/CUMM (130-400); Red Blood Count 4.05 MC/CUMM (3.8-5.5); Red Cell Distribution Width 11.7 % (9.3-17.3); White Blood Count 8.4 T/CUMM (4-12)
[2019-03-04 05:32] LABS: Calcium 9.4 MG/DL (8.5-10.1)
[2019-03-04] MEDS: ASPIRIN 325 MG TABLET PO SCH (08:59)
[2019-03-04] MEDS: FUROSEMIDE 40 MG TABLET PO SCH (08:59)
[2019-03-04] MEDS: METOPROLOL TARTRATE 25 MG TABLET PO SCH ×2 (08:59→21:07)
[2019-03-04] MEDS: methIMAzole 5 MG TABLET PO SCH (08:59)
[2019-03-04] MEDS: PANTOPRAZOLE 40 MG TABLET PO SCH (09:00)
[2019-03-04] MEDS: POTASSIUM CHLORIDE 10 MEQ TABLET PO SCH (09:00)
[2019-03-04] MEDS ORDERED: MAGNESIUM CITRATE 300 ML BOTTLE PO ONE (17:52)
[2019-03-04] MEDS: ENOXAPARIN 40 MG/0.4 ML SYRINGE SUBCUT SCH (21:01)
[2019-03-04] MEDS: ROSUVASTATIN 20 MG TABLET PO SCH (21:01)
[2019-03-05 04:54] LABS: Basophils # 0.1 10*3/uL (0.0-0.2); Basophils % 0.5 % (0.0-0.8); Eosinophils # 0.2 10*3/uL (0.0-0.87); Eosinophils % 2.5 % (0.00-10.9); Hematocrit 37.1 VOL% (35.7-47.0); Hemoglobin 12.5 GM/DL (12.0-16.0); Immature Granulocytes % 0.3 %; Immature Granulocytes Absolute 0.03 #; Lymphocytes # 3.9 10*3/uL (1.4-4.0); Lymphocytes % 41.7 % (21.3-54.2); Mean Corpuscular HGB Conc 33.7 GM/DL (32-36); Mean Platelet Volume 10.2 FL (9.6-12.0); Monocytes % 6.8 % (1.7-12.7); Neutrophils % 48.2 % (38.7-73.9); Platelet Count 392 T/CUMM (130-400); Red Blood Count 4.12 MC/CUMM (3.8-5.5); Red Cell Distribution Width 11.7 % (9.3-17.3); White Blood Count 9.4 T/CUMM (4-12)
[2019-03-05 05:18] LABS: Calcium 9.4 MG/DL (8.5-10.1)
[2019-03-05] MEDS: ASPIRIN 325 MG TABLET PO SCH (10:12)
[2019-03-05] MEDS: POTASSIUM CHLORIDE 10 MEQ TABLET PO SCH (10:12)
[2019-03-05] MEDS: FUROSEMIDE 40 MG TABLET PO SCH (10:12)
[2019-03-05] MEDS: METOPROLOL TARTRATE 25 MG TABLET PO SCH ×2 (10:13→21:00)
[2019-03-05] MEDS: methIMAzole 5 MG TABLET PO SCH (10:13)
[2019-03-05] MEDS: PANTOPRAZOLE 40 MG TABLET PO SCH (10:13)
[2019-03-05] MEDS ORDERED: REGADENOSON 0.4 MG/5 ML SYRINGE IV ONE (10:24)
[2019-03-05 12:26] LABS: Thyroglob. AB < 1.8 IU/mL (<4.0)
[2019-03-05] MEDS: ROSUVASTATIN 20 MG TABLET PO SCH (20:59)
[2019-03-05] MEDS: ENOXAPARIN 40 MG/0.4 ML SYRINGE SUBCUT SCH (21:58)
[2019-03-06 05:01] LABS: Basophils # 0.1 10*3/uL (0.0-0.2); Basophils % 0.5 % (0.0-0.8); Eosinophils # 0.3 10*3/uL (0.0-0.87); Eosinophils % 3.4 % (0.00-10.9); Hematocrit 37.4 VOL% (35.7-47.0); Hemoglobin 12.5 GM/DL (12.0-16.0); Immature Granulocytes % 0.3 %; Immature Granulocytes Absolute 0.03 #; Lymphocytes % 41.2 % (21.3-54.2); Mean Corpuscular HGB Conc 33.4 GM/DL (32-36); Mean Corpuscular Volume 89.7 FL (87-102); Mean Platelet Volume 9.8 FL (9.6-12.0); Monocytes % 7.9 % (1.7-12.7); Neutrophils % 46.7 % (38.7-73.9); Platelet Count 387 T/CUMM (130-400); Red Blood Count 4.17 MC/CUMM (3.8-5.5); Red Cell Distribution Width 11.6 % (9.3-17.3); White Blood Count 9.6 T/CUMM (4-12)
[2019-03-06 05:23] LABS: Calcium 9.1 MG/DL (8.5-10.1); Osmolality,Calculated 274.7 MOS/KG (273-304)
[2019-03-06] MEDS ORDERED: diphenhydrAMINE CAP 25 MG CAPSULE PO ONE (06:00)
[2019-03-06] MEDS ORDERED: DIAZEPAM 5 MG TABLET PO ONE (06:00)
[2019-03-06] MEDS ORDERED: SODIUM CHLORIDE 0.9% 1,000 ML IV SCH (06:00)
[2019-03-06] MEDS ORDERED: HEPARIN/NACL 0.9% 2 UNITS/ML 1,000 ML IV ONE (07:35)
[2019-03-06] MEDS ORDERED: LIDOCAINE 1% 20 ML VIAL ONE (07:35)
[2019-03-06] MEDS ORDERED: fentaNYL 100 MCG/2 ML VIAL ONE (07:41)
[2019-03-06] MEDS ORDERED: MIDAZOLAM 2 MG/2 ML VIAL ONE ×2 (07:41→07:57)
[2019-03-06] MEDS ORDERED: MORPHINE 4 MG/1 ML VIAL IV PRN (08:27)
[2019-03-06] MEDS ORDERED: ACETAMINOPHEN/CODEINE 300-30 MG TABLET PO PRN (08:27)
[2019-03-06] MEDS ORDERED: ERGOCALCIFEROL 50,000 UNIT CAPSULE PO SCH (09:00)
[2019-03-06] MEDS: FUROSEMIDE 40 MG TABLET PO SCH (14:21)
[2019-03-06] MEDS: methIMAzole 5 MG TABLET PO SCH (14:21)
[2019-03-06] MEDS: PANTOPRAZOLE 40 MG TABLET PO SCH (14:21)
[2019-03-06] MEDS: ASPIRIN 325 MG TABLET PO SCH (14:22)
[2019-03-06] MEDS: POTASSIUM CHLORIDE 10 MEQ TABLET PO SCH (14:23)
[2019-03-06 18:23] VITALS: BP 142/76
== END 2019-03-06 18:15 | disposition home or self-care (01) ==
LOC: N.ED 11:29 → N.EDINP 11:29 → SUATTDRO 15:25 → N.EDINP 16:39 → N.2E 16:49
PROVIDERS: ADMIT Internal Medicine; ATTEND Internal Medicine Cardiovascular Disease
PROC: CLCCHCL (ICD-10-PCS; 2019-03-06 08:15)